=== PATIENT | male | born 2005 | race Two or more races ===

== ENCOUNTER 2024-04-14 23:57 | Inpatient (IN) | payer SELFPAY ==
[~2024-04-14] VITALS: Ht 165.1 cm; Wt 50.0 kg
[2024-04-15] VITALS (8 sets, daily range): BP systolic 112–118; BP diastolic 70–77; PULSE 100–118; RESP 14–20; TEMP 98.1–102.6; O2SAT 96–100
[2024-04-15] MEDS: ACETAMINOPHEN 325 MG TAB PO ONE ×2 (00:15→08:45)
[2024-04-15] MEDS: SODIUM CHLORIDE 0.9% 1,000 ML IVB ONE (00:28)
[2024-04-15 00:41] LABS: Basophils # (auto) 0 10 ^3/uL (0-0.2); Basophils % (auto) 0.1 % (0.0-2.0); Eosinophils # (auto) 0 10 ^3/uL (0-0.8); Eosinophils % (auto) 0.1 % (0.0-7.0); Hematocrit 39.3 % (41.0-53.0); Hemoglobin 13.1 g/dL (13.5-17.5); Lymphocytes # (auto) 0.3 10 ^3/uL (0.4-5.4); Lymphocytes % (auto) 7.4 % (10.0-50.0); Mean Corpuscular Hemoglobin 21.3 pg (28.0-32.0); Mean Corpuscular Hgb Conc. 33.3 g/dL (32.0-36.0); Mean Corpuscular Volume 64.1 fL (80.0-100.0); Monocytes # (auto) 0.1 10 ^3/uL (0-1.3); Monocytes % (auto) 1.5 % (0.0-12.0); Neutrophils # (auto) 3.7 10 ^3/uL (1.6-8.6); Neutrophils % (auto) 90.9 % (37.0-80.0); Nucleated Red Blood Cells % 0.1 %; Red Blood Cells 6.13 10^6/uL (4.5-5.90); Red Cell Distribution Width 16.1 % (11.8-14.3); White Blood Cell 4.1 10^3/uL (4.4-10.8)
[2024-04-15 00:43] LABS: Chloride 101 mmol/L (98-107); Potassium 3.6 mmol/L (3.5-5.1); Sodium 135 mmol/L (136-145)
[2024-04-15 00:44] LABS: Anion Gap 10 (5-15); Carbon Dioxide 24 mmol/L (20-30)
[2024-04-15 00:45] LABS: Calcium 9.8 mg/dL (8.7-10.4)
[2024-04-15 00:50] LABS: BUN/Creatinine Ratio 11.2 (10.0-20.0); Blood Urea Nitrogen 10 mg/dL (9-23); Glucose 124 mg/dL (74-106)
[2024-04-15 01:14] LABS: Lactic Acid w/Reflex 2.6 mmol/L (0.4-2.0)
[2024-04-15 04:30] LABS: Urine Bacteria None Seen /hpf (None Seen)
[2024-04-15 04:44] LABS: Urine Blood Negative /uL (Negative); Urine Clarity Clear (Clear); Urine Color Light-Yellow (Yellow); Urine Protein, UAD Negative (Negative); Urine Specific Gravity 1.005 (1.001-1.035); Urine Urobilinogen 3 mg/dL (Negative); Urine WBC <1 /hpf (0 - 3)
[2024-04-15] MEDS: cefTRIAXone 1GM/50ML D5W 50 ML IV ONE ×2 (04:46→04:47)
[2024-04-15] MEDS: metroNIDAZOLE 500MG/100ML 100 ML IV ONE (04:47)
[2024-04-15] MEDS ORDERED: ONDANSETRON HCL 4 MG/2 ML VIAL IV PRN (10:15)
[2024-04-15] MEDS ORDERED: NITROGLYCERIN 0.4 MG SL TAB SL PRN (10:15)
[2024-04-15] MEDS ORDERED: DOCUSATE SOD 100 MG CAP PO PRN (10:15)
[2024-04-15] MEDS ORDERED: MORPHINE SULFATE INJ 2 MG/ml SYRG IV PRN ×2 (10:15)
[2024-04-15] MEDS ORDERED: PIPERACILLIN-TAZOB 3.375GM 100 ML IV ONE (10:15)
[2024-04-15 11:11] LABS: INR 1.25 (0.9-1.15)
[2024-04-15] MEDS: SODIUM CHLORIDE 0.9% 1,000 ML IV SCH (15:19)
[2024-04-15] MEDS: KETOROLAC TROMETH 30 MG/ML 1ML VIAL IV ONE (15:23)
[2024-04-15] MEDS: PIPERACILLIN-TAZOB 3.375GM 100 ML IV SCH (15:23)
[2024-04-15] MEDS ORDERED: HYDROmorphone HCL 2 MG/ML VL/or syr ONE (19:35)
[2024-04-15] MEDS ORDERED: MIDAZOLAM HCL 2MG/2ML 2ml VIAL (1mg/ml) ONE (19:35)
[2024-04-15] MEDS ORDERED: fentaNYL CITRATE 100 MCG/2 ML VL ONE (19:35)
[2024-04-15] MEDS ORDERED: DexAMETHasone SOD PHOS 10MG/1ML VIAL INJ ONE (19:36)
[2024-04-15] MEDS ORDERED: ROCURONIUM 10MG/ML 10ML VIAL IV ONE (19:36)
[2024-04-15] MEDS ORDERED: PROPOFOL 10 MG/ML 20 ML IV ONE (19:36)
[2024-04-15] MEDS ORDERED: KETOROLAC TROMETH 30 MG/ML 1ML VIAL ONE (19:36)
[2024-04-15] MEDS ORDERED: ONDANSETRON HCL 4 MG/2 ML VIAL ONE (19:36)
[2024-04-15] MEDS ORDERED: LIDOCAINE 2% (LOCAL ANESTH.) PF 5ml SDV ONE (19:36)
[2024-04-15] MEDS ORDERED: GLYCOPYRROLATE 0.2 MG/ML 1ML VIAL ONE (19:36)
[2024-04-15] MEDS ORDERED: ePHEDrine SULFATE 50 MG/ML AMP ONE (19:36)
[2024-04-15] MEDS ORDERED: SUGAMMADEX 200mg/2ml Vial (100MG/ML) IV ONE (21:17)
[2024-04-15] MEDS: BUPIVACAINE 0.25% INJ 50ML VIAL ONE (21:25)
[2024-04-15] MEDS ORDERED: HYDROmorphone HCL 2 MG/ML VL/or syr IV PRN ×2 (21:45→22:15)
[2024-04-15] MEDS ORDERED: ONDANSETRON HCL 4 MG/2 ML VIAL IV ONE (22:15)
[2024-04-16 01:13] VITALS: BP 107/70; PULSE 85; RESP 20; TEMP 97.8; O2SAT 90
[2024-04-16 04:46] VITALS: BP 110/62; PULSE 65; RESP 18; TEMP 98.4; O2SAT 97
[2024-04-16 06:47] LABS: Basophils # (auto) 0 10 ^3/uL (0-0.2); Eosinophils # (auto) 0 10 ^3/uL (0-0.8); Eosinophils % (auto) 0.3 % (0.0-7.0); Lymphocytes # (auto) 0.5 10 ^3/uL (0.4-5.4); Monocytes % (auto) 4.7 % (0.0-12.0); Red Cell Distribution Width 16.4 % (11.8-14.3)
[2024-04-16 06:50] LABS: Hematocrit 32.6 % (41.0-53.0); Hemoglobin 10.5 g/dL (13.5-17.5); Lymphocytes % (auto) 5.4 % (10.0-50.0); Mean Corpuscular Hemoglobin 20.8 pg (28.0-32.0); Mean Corpuscular Hgb Conc. 32.3 g/dL (32.0-36.0); Mean Corpuscular Volume 64.6 fL (80.0-100.0); Monocytes # (auto) 0.4 10 ^3/uL (0-1.3); Neutrophils # (auto) 8.4 10 ^3/uL (1.6-8.6); Neutrophils % (auto) 89.6 % (37.0-80.0); Red Blood Cells 5.05 10^6/uL (4.5-5.90); White Blood Cell 9.4 10^3/uL (4.4-10.8)
[2024-04-16 07:19] LABS: Alanine Aminotransferase 13 U/L (7-40); Albumin 3.6 g/dL (3.2-4.8); Alkaline Phosphatase 44 U/L (46-116); Anion Gap 2 (5-15); BUN/Creatinine Ratio 14.1 (10.0-20.0); Blood Urea Nitrogen 11 mg/dL (9-23); Calcium 9.4 mg/dL (8.7-10.4); Carbon Dioxide 28 mmol/L (20-30); Chloride 107 mmol/L (98-107); Glucose 132 mg/dL (74-106); Potassium 4.8 mmol/L (3.5-5.1); Sodium 137 mmol/L (136-145)
[2024-04-16 07:20] LABS: Aspartate Aminotransferase 15 U/L (13-40); Bilirubin, Total 1.8 mg/dL (0.2-1.0); Total Protein 5.9 g/dL (5.7-8.2)
[2024-04-16 08:31] LABS: Hypochromia Moderate; Platelet Estimate Decreased
[2024-04-16 09:00] VITALS: BP 99/64; PULSE 63; RESP 16; TEMP 98.1; O2SAT 98
[2024-04-16 13:00] VITALS: BP 101/64; PULSE 74; RESP 18; TEMP 98; O2SAT 97
[2024-04-16 17:00] VITALS: BP 110/67; PULSE 68; RESP 18; TEMP 97.8; O2SAT 99
[2024-04-16 21:00] VITALS: BP 111/63; PULSE 72; RESP 18; TEMP 98.1; O2SAT 98
[2024-04-17 01:00] VITALS: BP 114/69; PULSE 59; RESP 17; TEMP 98.3; O2SAT 97
[2024-04-17 05:00] VITALS: BP_SYST 119; BP_SYST 149; BP_DIAS 80; BP_DIAS 92; PULSE 77; RESP 17; RESP 18; TEMP 97.9; TEMP 98.2; O2SAT 97
[2024-04-17 08:45] VITALS: BP 108/76; PULSE 61; RESP 16; TEMP 99.6; O2SAT 98
[2024-04-17 12:35] VITALS: BP 113/69; PULSE 78; RESP 18; TEMP 99.1; O2SAT 98
[2024-04-17] MEDS ORDERED: AUG875T PO (16:21)
[2024-04-17] MEDS ORDERED: HYDR-4902 PO (16:21)
[2024-04-17] MEDS ORDERED: NALO4SPR2 (16:25)
[2024-04-17 16:35] VITALS: BP 114/73; PULSE 61; RESP 17; TEMP 99; O2SAT 99
[2024-04-17 19:23] VITALS: BP 114/73; PULSE 61; RESP 17; TEMP 99; O2SAT 99
== END 2024-04-17 19:57 | disposition home or self-care (01) | DRG 853 ==
LOC: ER 23:57 → OVERFLOW 04-15 10:14 → WEST WING 04-15 11:16
PROVIDERS: ADMIT Nurse Practitioner Family; ATTEND Nurse Practitioner Family
PROC: 0DTJ4ZZ Resection of Appendix, Percutaneous Endoscopic Approach (ICD-10-PCS; principal; 2024-04-15 20:15)
DX: A41.9 Sepsis, unspecified organism (principal); K35.33 Acute appendicitis with perforation, localized peritonitis, and gangrene, with abscess; E87.1 Hypo-osmolality and hyponatremia; E86.0 Dehydration; K76.0 Fatty (change of) liver, not elsewhere classified; D50.9 Iron deficiency anemia, unspecified; K66.0 Peritoneal adhesions (postprocedural) (postinfection); Z82.49 Family history of ischemic heart disease and other diseases of the circulatory system; Z82.5 Family history of asthma and other chronic lower respiratory diseases; Z83.3 Family history of diabetes mellitus
CPT/HCPCS: 36415; 74176; 80048; 80053; 81001; 83605; 85025; 85610; 86850; 86900; 86901; 87040; 87077; 87186; 93005; 99291; G0378; J1100; J1885; J2001; J2250; J2405; J2543; J2704; J3490

== ENCOUNTER 2024-05-01 16:13 | Emergency (ER) | payer MEDICAID ==
[~2024-05-01] VITALS: Ht 165.1 cm; Wt 50.5 kg
[~2024-05-01 16:13] MED LIST: AUG875T PO; HYDR-4902 PO; NALO4SPR2
[2024-05-01 17:00] VITALS: BP 110/60; PULSE 75; RESP 16; TEMP 99; O2SAT 98
== END 2024-05-01 17:41 | disposition home or self-care (01) ==
LOC: ER 16:17
DX: G89.18 Other acute postprocedural pain (principal)